=== PATIENT | female | born 2005 | race African-American/Black ===

== ENCOUNTER 2024-09-18 16:53 | Emergency (ER) | payer OTHER, SELFPAY ==
[2024-09-18 16:57] VITALS: BP 126/81; PULSE 86; RESP 14; TEMP 36.1; O2SAT 100; BMI 26.5
--- NOTE | 2024-09-18 17:15 | ED.GENADULT ---
HPI - General Adult General Chief complaint: Jaw Injury/Pain Stated complaint: left check swollen Time Seen by Provider: 09/18/24 16:54 History of Present Illness HPI narrative: This 19-year-old female comes in reporting pain and swelling in her left cheek. This is been present over the past day or so. She does feel like she has some dental pain related to this. She does not report any fevers. She states she has otherwise been in good health. Related Data Home Medications ?Medication ?Instructions ?Recorded ?Confirmed No Known Home Medications 09/18/24 09/18/24 Previous Rx's ?Medication ?Instructions ?Recorded amoxicillin 500 mg capsule 500 mg PO TID 10 days #21 caps 09/18/24 Allergies Allergy/AdvReac Type Severity Reaction Status Date / Time No Known Drug Allergies Allergy Verified 09/18/24 16:57 Review of Systems Status of ROS: Reports: 10 or more systems reviewed and unremarkable except as noted in History and below Narrative: Constitutional: No fevers, no weight gain or loss. Eyes: No discharge. No vision changes. HENT: No congestion, no sore throat, no ear pain. Left cheek swelling and associated dental pain. Cardiovascular: No chest pain, no palpitations. Respiratory: No shortness of breath, no wheezes, no cough. Gastrointestinal: No abdominal pain, no vomiting, no diarrhea. Genitourinary: No dysuria, no hematuria. Musculoskeletal: Normal range of motion. Skin: No rashes, no pruritis. Neurological: No dizziness, weakness, sensory change, speech change. Endo/Heme/Allergies: No bruising or bleeding. No polydipsia. Pysch: no suicidality, no anxiety, no insomnia. All other systems reviewed and are negative. PFSH PFS Social History Smoking Status: Never smoker How often do you have a drink containing alcohol: monthly or less AUDIT-C Alcohol total score: 1 Non-prescribed substance use: former substance user and marijuana (any form) Exam Narrative: Exam Narrative: Constitutional: Well-developed, well-nourished, no acute distress. HEENT: Normocephalic, atraumatic. Oropharynx appears normal with good dentition. Mild swelling of the left cheek with no palpable abscess. Neck: Normal range of motion. Nontender. Supple. Heart: Regular. No murmurs. Normal rate. Intact distal pulses. Lungs: Clear to auscultation. No chest discomfort. No wheezes, rhonchi, or rales. Abdomen: Normal bowel sounds. Nontender. No rebound tenderness. Genitalia: Deferred. Back: No midline tenderness. Normal range of motion. Extremities: Normal range of motion. No injury. Skin: Intact. No rash. Warm. No erythema or pallor. Neurologic: No altered sensation. No weakness. Alert and oriented. Psychiatric: No suicidality. No anxiety or depression. No insomnia. Nursing notes and vitals signs are reviewed. Const: Vital Signs, click to edit/add: Vital Signs - 24 hr 09/18/24 16:57 Temperature 96.9 F L Pulse Rate [Pulse Oximeter] 86 Respiratory Rate 14 Blood Pressure [Ri ght Upper Arm] 126/81 Pulse Oximetry 100 Oxygen Delivery Me thod Room Air Course Vital Signs Vital signs: Initial Vital Signs Temperature 96.9 F L 09/18/24 16:57 Temperature Source Temporal Artery Scan 09/18/24 16:57 Pulse Rate 86 09/18/24 16:57 Pulse Rhythm Regular 09/18/24 16:57 Respiratory Rate 14 09/18/24 16:57 Blood Pressure 126/81 09/18/24 16:57 Blood Pressure Mean 96 09/18/24 16:57 Blood Pressure Position Sitting 09/18/24 16:57 Pulse Oximetry 100 09/18/24 16:57 Oxygen Delivery Method Room Air 09/18/24 16:57 Vital Signs Temperature 96.9 F L 09/18/24 16:57 Pulse Rate 86 09/18/24 16:57 Respiratory Rate 14 09/18/24 16:57 Blood Pressure 126/81 09/18/24 16:57 Pulse Oximetry 100 09/18/24 16:57 Oxygen Delivery Method Room Air 09/18/24 16:57 Temperature 96.9 F L 09/18/24 16:57 Pulse Rate 86 09/18/24 16:57 Respiratory Rate 14 09/18/24 16:57 Blood Pressure 126/81 09/18/24 16:57 Pulse Oximetry 100 09/18/24 16:57 Oxygen Delivery Method Room Air 09/18/24 16:57 Medical Decision Making MDM Narrative Medical decision making narrative: This patient has discomfort and mild swelling of her left cheek overlying her teeth on the left side. This may be suggestive of a dental infection or abscess. There is no palpable abscess on my exam and her oral exam also appeared normal. I advised her to follow up with the dentist but did provide a prescription for amoxicillin. Discharge Plan Discharge Clinical Impression: Pain, dental Patient Disposition: Home, Self-Care Condition: Unchanged Additional Instructions: Take medication as prescribed. Use [id number] medicines also as needed and directed. Follow up with dentist for ongoing management. Prescriptions: New amoxicillin 500 mg capsule 500 mg PO TID 10 Days Qty: 21 0RF No Action No Known Home Medications Stand Alone Forms: [facility] Info Instructions
[2024-09-18 17:23] VITALS: RESP 18
== END 2024-09-18 17:27 | disposition home or self-care (01) ==
LOC: ED 17:25
PROVIDERS: Emergency Provider Emergency Medicine Emergency Medical Services
DX: K08.89 Other specified disorders of teeth and supporting structures (principal)
CPT/HCPCS: 99283; 99284